=== PATIENT | male | born 1980 | race Hispanic/Latino ===

== ENCOUNTER 2016-06-16 07:45 | Emergency (ER) | payer SELFPAY ==
[2016-06-16] MEDS ORDERED: KETOROLAC 60 MG/2 ML VIAL IM ONE (08:27)
== END 2016-06-16 10:07 | disposition home or self-care (01) ==
LOC: ER 07:45
DX: J90 Pleural effusion, not elsewhere classified (principal); R07.89 Other chest pain
CPT/HCPCS: 36415; 71010; 84484; 93005; 96372